=== PATIENT | female | born 1960 | race American Indian/Alaskan Native ===

== ENCOUNTER 2018-10-19 11:36 | Emergency (ER) | payer MEDICAID ==
[2018-10-19] MEDS ORDERED: PEPCID PO ONE (11:49)
[2018-10-19] MEDS ORDERED: ULTRAM PO ONE (11:49)
[2018-10-19] MEDS ORDERED: BABY ASPIRIN PO ONE (11:49)
[2018-10-19] MEDS ORDERED: ZOFRAN ODT PO ONE (11:49)
--- NOTE | 2018-10-19 11:59 | Emergency Department Report ---
ED Chest Pain HPI - General Stated Complaint: CHEST PAIN Time Seen by Provider: 10/19/18 11:39 Source: patient, EMS, old records reviewed - History of Present Illness Initial Comments: Ms. Pereira is a very pleasant 58 year old female with history of hypertension, [id number] diabetes and polysubstance abuse who presents to the ER for 1-2 days of throbbing headache and chest pain. She also had associated lightheadedness and dizziness. She is unable to describe or localize the pain in her chest. She denies any heaviness tightness or sharp quality. Headache is global nondescript. Moderate in severity. She lives with her mother. Mother provided additional history to EMS. Mother informed paramedics that she normally use EMS for [place]. She then uses her money for to obtain crack cocaine. Patient stated that her last use of crack cocaine was over a year ago. Mother told paramedics that she continues to use crack cocaine. Patient explained that she normally attempts to goes to [facility] but "they only gave two ostomy bags". She has a makeshift ostomy bag in place with tape and trash bag. The ostomy bags are unaffordable according to Ms. Pereira. She had abdominal surgery requiring ostomy due to complications of crack cocaine abuse. She also has history of pneumothorax which required surgical intervention. MD Complaint: chest pain -: Gradual, days(s) (2) Onset: during rest Pain Location: other (difficult to localize) Pain Radiation: none Severity: moderate Quality: dull Consistency: constant Improves With: nothing Worsens With: nothing re: denies: dyspnea Other Symptoms: denies: cough, fever, syncope, rash, leg swelling, palpitations - Related Data Home Medications Medication Instructions Recorded Confirmed Last Taken Hydrocodone Bit/Acetaminophen 07/20/13 07/20/13 Unknown [Lortab 5-500 Tablet] Ibuprofen [Motrin] 800 mg PO TID PRN 07/20/13 07/20/13 Unknown Previous Rx's Medication Instructions Recorded Last Taken Type Ciprofloxacin HCl [Ciprofloxacin 500 mg PO BID #10 tablet 07/20/13 Unknown Rx TAB] Cyclobenzaprine [Flexeril 10 MG 10 mg PO TID PRN #12 tablet 07/20/13 Unknown Rx TAB] HYDROcodone/APAP 7.5-325 [[place] 1 each PO Q6HR PRN #12 tablet 07/20/13 Unknown Rx 7.5/325 mg] Naproxen [Naprosyn TAB] 500 mg PO BID PRN #30 tablet 10/12/13 Unknown Rx Allergies Allergy/AdvReac Type Severity Reaction Status Date / Time Penicillins Allergy Swelling Verified 07/20/13 14:24 Heart Score - HEART Score History: Slightly suspicious EKG: Normal Age: 45-65 Risk factors: > 3 risk factors or hx of atherosclerotic disease Troponin: < normal limit HEART Score: 3 ED Review of Systems ROS: Stated complaint: CHEST PAIN Other details as noted in HPI Comment: All other systems reviewed and negative Constitutional: denies: fever, malaise Respiratory: denies: cough Cardiovascular: chest pain Gastrointestinal: denies: abdominal pain ED Past Medical Hx - Past Medical History Previous Medical History?: Yes Hx Hypertension: Yes Hx Diabetes: Yes Additional medical history: back injury several months ago. - Surgical History Additional Surgical History: lung collapsed abdominal surgery, ostomy - Social History Smoking Status: Current Every Day Smoker Substance Use Type: Cocaine, Marijuana - Medications Home Medications: Home Medications Medication Instructions Recorded Confirmed Last Taken Type Ciprofloxacin HCl [Ciprofloxacin 500 mg PO BID #10 tablet 07/20/13 Unknown Rx TAB] Cyclobenzaprine [Flexeril 10 MG 10 mg PO TID PRN #12 tablet 07/20/13 Unknown Rx TAB] HYDROcodone/APAP 7.5-325 [[place] 1 each PO Q6HR PRN #12 tablet 07/20/13 Unknown Rx 7.5/325 mg] Hydrocodone Bit/Acetaminophen 07/20/13 07/20/13 Unknown History [Lortab 5-500 Tablet] Ibuprofen [Motrin] 800 mg PO TID PRN 07/20/13 07/20/13 Unknown History Naproxen [Naprosyn TAB] 500 mg PO BID PRN #30 tablet 10/12/13 Unknown Rx ED Physical Exam - General General appearance: alert, in no apparent distress, other (looks older is then stated age, otherwise no acute distress, nontoxic, pleasant insightful talkative) - Head Head exam: Present: atraumatic, normocephalic - Eye Eye exam: Present: normal appearance - ENT ENT exam: Present: mucous membranes moist - Neck Neck exam: Present: normal inspection. Absent: tenderness, meningismus - Respiratory Respiratory exam: Present: normal lung sounds bilaterally. Absent: respiratory distress, wheezes, rales, rhonchi - Cardiovascular Cardiovascular Exam: Present: regular rate, normal rhythm, normal heart sounds. Absent: systolic murmur, diastolic murmur, rubs, gallop - GI/Abdominal GI/Abdominal exam: Present: soft, normal bowel sounds, other (old well-healed central large long vertical surgical scar, right lower quadrant ostomy with normal appearing output and makeshift ostomy bag). Absent: distended, tenderness, guarding, rebound - Extremities Exam Extremities exam: Present: normal inspection - Neurological Exam Neurological exam: Present: alert, oriented X3 - Psychiatric Psychiatric exam: Present: normal affect, normal mood - Skin Skin exam: Present: warm, dry, intact, normal color. Absent: rash ED Course Vital Signs 10/19/18 10/19/18 10/19/18 11:49 12:00 12:03 Temperature 97.3 F L Pulse Rate 110 H 101 H Respiratory 14 18 19 Rate Blood Pressure 115/55 O2 Sat by Pulse 100 100 Oximetry 10/19/18 10/19/18 10/19/18 12:30 12:45 13:01 Temperature Pulse Rate 94 H 91 H 87 Respiratory 17 13 17 Rate Blood Pressure 96/58 98/69 98/69 O2 Sat by Pulse 85 Oximetry 10/19/18 10/19/18 10/19/18 13:15 13:31 13:45 Temperature Pulse Rate 85 80 96 H Respiratory 12 15 21 Rate Blood Pressure 98/69 98/69 98/69 O2 Sat by Pulse Oximetry 10/19/18 10/19/18 10/19/18 13:49 14:01 14:15 Temperature Pulse Rate 93 H 93 H Respiratory 15 13 Rate Blood Pressure 98/69 98/69 O2 Sat by Pulse 99 Oximetry 10/19/18 10/19/18 10/19/18 14:31 14:45 15:01 Temperature Pulse Rate 92 H 112 H 79 Respiratory 13 16 9 L Rate Blood Pressure 98/69 98/69 98/69 O2 Sat by Pulse Oximetry 10/19/18 15:15 Temperature Pulse Rate 74 Respiratory 11 L Rate Blood Pressure 98/69 O2 Sat by Pulse Oximetry ED Medical Decision Making - Lab Data Result diagrams: 10/19/18 12:00 10/19/18 12:00 Laboratory Results - last 24 hr 10/19/18 10/19/18 12:00 12:00 WBC 8.9 RBC 3.57 L Hgb 11.0 Hct 33.6 MCV 94 MCH 31 MCHC 33 RDW 16.2 H Plt Count 371 Lymph % (Auto) 22.1 Bradley % (Auto) 11.1 H Eos % (Auto) 2.5 Baso % (Auto) 0.4 Lymph # 2.0 Bradley # 1.0 H Eos # 0.2 Baso # 0.0 Seg Neutrophils % 63.9 Seg Neutrophils # 5.7 Sodium 132 L Potassium 4.1 Chloride 103.8 Carbon Dioxide 13 L Anion Gap 19 BUN 53 H Creatinine 2.2 H Estimated GFR 28 BUN/Creatinine Ratio 24 Glucose 72 Calcium 9.2 Troponin T < 0.010 Laboratory Results - last 24 hr 10/19/18 10/19/18 10/19/18 12:00 12:00 14:49 WBC 8.9 RBC 3.57 L Hgb 11.0 Hct 33.6 MCV 94 MCH 31 MCHC 33 RDW 16.2 H Plt Count 371 Lymph % (Auto) 22.1 Bradley % (Auto) 11.1 H Eos % (Auto) 2.5 Baso % (Auto) 0.4 Lymph # 2.0 Bradley # 1.0 H Eos # 0.2 Baso # 0.0 Seg Neutrophils % 63.9 Seg Neutrophils # 5.7 Sodium 132 L Potassium 4.1 Chloride 103.8 Carbon Dioxide 13 L Anion Gap 19 BUN 53 H Creatinine 2.2 H Estimated GFR 28 BUN/Creatinine Ratio 24 Glucose 72 Calcium 9.2 Troponin T < 0.010 < 0.010 - EKG Data -: EKG Interpreted by Me - EKG Data 10/19/18 11:58 EKG obtained 1145 Rate 90 beats a minute normal sinus rhythm normal axis normal intervals no ST-T signs of ischemia No ST elevation poor R-wave progression in the anterior lead - Medical Decision Making Ms. Pereira presents with nondescript headache and chest pain. Headache appears to be tension headache. She does not appear in distress. Chest pain atypical for acute coronary syndrome. I do not suspect pulmonary embolism, aortic dissection, pneumothorax or pericarditis. Troponin levels x 2 sets are negative. Heart score 3. She is at low risk for major adverse cardiac event if she is drug free. Nurse did arrange for patient to have new ostomy bag which appeared to be her largest concern.. I review labs. Patient has elevated BUN/creatinine, prerenal injury pattern. Unclear chronicity possible acute versus chronic. She received IV fluid therapy prior to discharge. She did request PCP here in [facility]. She is discharge home in stable condition. Critical care attestation.: If time is entered above; I have spent that time in minutes in the direct care of this critically ill patient, excluding procedure time. ED Disposition Clinical Impression: Chest pain, Headache, CKD (chronic kidney disease) Disposition: - TO HOME OR SELFCARE Is pt being admited?: No Does the pt Need Aspirin: No Condition: Stable Instructions: Chest Pain (ED), Tension Headache (ED) Referrals: PRIMARY CARE, [Primary Care Provider] - 3-5 Days
[2018-10-19 12:24] LABS: Basophils % (Auto) 0.4 % (0.0-1.8); Eosinophils # (Auto) 0.2 K/mm3 (0.0-0.4); Eosinophils % (Auto) 2.5 % (0.0-4.3); Hematocrit 33.6 % (30.3-42.9); Lymphocytes % (Auto) 22.1 % (13.4-35.0); Mean Corpuscular HGB Conc 33 % (30-34); Mean Corpuscular Volume 94 fl (79-97); Monocytes % (Auto) 11.1 % (0.0-7.3); Platelet Count 371 K/mm3 (140-440); Red Blood Count 3.57 M/mm3 (3.65-5.03); Red Cell Distribution Width 16.2 % (13.2-15.2)
[2018-10-19 12:35] LABS: BUN/Creatinine Ratio 24; Blood Urea Nitrogen 53 mg/dL (7-17); Calcium 9.2 mg/dL (8.4-10.2); Hemolysis Index 17
[2018-10-19] MEDS ORDERED: NACL 0.9% 1000 ML 1,000 ML IV ONE (12:46)
--- NOTE | 2018-10-19 12:46 | XRay Report ---
CHEST ONE VIEW INDICATION: Chest pain. COMPARISON: None similar. FINDINGS: Portable, single, frontal chest radiograph demonstrates normal heart size. Somewhat prominent pete. Clear lungs. Unremarkable bones. Extrinsic EKG leads. Air noted in the stomach. CONCLUSION: No acute disease in the chest with pulmonary arterial hypertension not excluded. Please correlate. Thank you for the opportunity to participate in this patient's care.
[2018-10-19 16:56] VITALS: BP 118/78
== END 2018-10-19 16:54 | disposition home or self-care (01) ==
LOC: ED 11:36
DX: E11.22 Type 2 diabetes mellitus with diabetic chronic kidney disease (principal); I12.9 Hypertensive chronic kidney disease with stage 1 through stage 4 chronic kidney disease, or unspecified chronic kidney disease; N18.9 Chronic kidney disease, unspecified; F17.200 Nicotine dependence, unspecified, uncomplicated; F12.10 Cannabis abuse, uncomplicated; F14.10 Cocaine abuse, uncomplicated; Z88.0 Allergy status to penicillin
CPT/HCPCS: 36415; 71045; 80048; 84484; 85025; 93005; 93010; 96360; 99285; J7030; Q0162

== ENCOUNTER 2018-10-30 12:44 | Emergency (ER) | payer MEDICAID ==
[2018-10-30 12:53] VITALS: BP 110/65
--- NOTE | 2018-10-30 14:02 | Emergency Department Report ---
ED General Adult HPI - General Chief complaint: Medical Clearance Stated complaint: COLONSCOPY BAG LOOSE Time Seen by Provider: 10/30/18 13:56 Source: patient Mode of arrival: Ambulatory Limitations: No Limitations - History of Present Illness Initial comments: Mrs. Pereira is a 58 yo female with colostomy in place s/p emergency surgery related to complication of cocaine abuse at [facility] over one year ago. I have had the pleasure of treating Mrs. Pereira earlier this month. She requests a colostomy bag. She also had irritation and skin break down surrounding the ostomy site. No other concerns or symptoms. When I treated Mrs. Pereira previously, she used a homemade ostomy bag with tape, adhesive attached to a plastic bag. Past medical history also includes diabetes mellitus, hypertension - Related Data Home Medications Medication Instructions Recorded Confirmed Last Taken Hydrocodone Bit/Acetaminophen 07/20/13 07/20/13 Unknown [Lortab 5-500 Tablet] Ibuprofen [Motrin] 800 mg PO TID PRN 07/20/13 07/20/13 Unknown Previous Rx's Medication Instructions Recorded Last Taken Type Ciprofloxacin HCl [Ciprofloxacin 500 mg PO BID #10 tablet 07/20/13 Unknown Rx TAB] Cyclobenzaprine [Flexeril 10 MG 10 mg PO TID PRN #12 tablet 07/20/13 Unknown Rx TAB] HYDROcodone/APAP 7.5-325 [[place] 1 each PO Q6HR PRN #12 tablet 07/20/13 Unknown Rx 7.5/325 mg] Naproxen [Naprosyn TAB] 500 mg PO BID PRN #30 tablet 10/12/13 Unknown Rx Allergies Allergy/AdvReac Type Severity Reaction Status Date / Time Penicillins Allergy Swelling Verified 07/20/13 14:24 ED Review of Systems ROS: Stated complaint: COLONSCOPY BAG LOOSE Other details as noted in HPI Constitutional: denies: fever, malaise Gastrointestinal: denies: abdominal pain Skin: rash ED Past Medical Hx - Past Medical History Hx Hypertension: Yes Hx Diabetes: Yes Additional medical history: back injury several months ago. - Surgical History Past Surgical History?: Yes Additional Surgical History: lung collapsed abdominal surgery, ostomy - Social History Smoking Status: Never Smoker Substance Use Type: None - Medications Home Medications: Home Medications Medication Instructions Recorded Confirmed Last Taken Type Ciprofloxacin HCl [Ciprofloxacin 500 mg PO BID #10 tablet 07/20/13 Unknown Rx TAB] Cyclobenzaprine [Flexeril 10 MG 10 mg PO TID PRN #12 tablet 07/20/13 Unknown Rx TAB] HYDROcodone/APAP 7.5-325 [[place] 1 each PO Q6HR PRN #12 tablet 07/20/13 Unknown Rx 7.5/325 mg] Hydrocodone Bit/Acetaminophen 07/20/13 07/20/13 Unknown History [Lortab 5-500 Tablet] Ibuprofen [Motrin] 800 mg PO TID PRN 07/20/13 07/20/13 Unknown History Naproxen [Naprosyn TAB] 500 mg PO BID PRN #30 tablet 10/12/13 Unknown Rx ED Physical Exam - General Limitations: No Limitations General appearance: alert, in no apparent distress - Respiratory Respiratory exam: Absent: respiratory distress - GI/Abdominal GI/Abdominal exam: Present: soft, other (ostomy with normal output, no ostomy bag in place, skin irritation surrounding the ostomy site without infection.). Absent: distended, tenderness - Neurological Exam Neurological exam: Present: alert, oriented X3 - Psychiatric Psychiatric exam: Present: normal affect, normal mood - Skin Skin exam: Present: warm, dry, intact, normal color ED Course Vital Signs 10/30/18 12:50 Temperature 98.5 F Pulse Rate 107 H Respiratory 18 Rate Blood Pressure 110/65 O2 Sat by Pulse 94 Oximetry ED Medical Decision Making - Medical Decision Making I have asked our nurse to attempt to obtain ostomy bag. She will need protective services social worker consultation on subsequent encounter. Discharged home. Critical care attestation.: If time is entered above; I have spent that time in minutes in the direct care of this critically ill patient, excluding procedure time. ED Disposition Clinical Impression: History of colostomy, Poor social situation Disposition: DC-01 TO HOME OR SELFCARE Is pt being admited?: No Does the pt Need Aspirin: No Condition: Stable Referrals: BRIAN CLAY [Primary Care Provider] - 3-5 Days
== END 2018-10-30 14:28 | disposition home or self-care (01) ==
LOC: ED 12:44
DX: K94.09 Other complications of colostomy (principal); I10 Essential (primary) hypertension; E11.9 Type 2 diabetes mellitus without complications; Z88.0 Allergy status to penicillin
CPT/HCPCS: 99282

== ENCOUNTER 2019-01-02 10:45 | Emergency (ER) | payer MEDICAID ==
[2019-01-02] MEDS ORDERED: ZOFRAN IV ONE (11:48)
[2019-01-02] MEDS ORDERED: MORPHINE IV ONE (11:48)
--- NOTE | 2019-01-02 11:49 | Emergency Department Report ---
ED General Adult HPI - General Chief complaint: Abdominal Pain Stated complaint: ABDOMINAL PAIN Time Seen by Provider: 01/02/19 11:09 Source: patient, EMS (ems notes not available at time of chart dictation), RN notes reviewed, old records reviewed Mode of arrival: Stretcher Limitations: No Limitations - History of Present Illness Initial comments: This is a 58-year-old female. The patient is not known to this provider previously The patient has a past medical history of reported renal insufficiency, right lower quadrant colostomy, asthma, diabetes, hypertension. Patient also has a history of former polysubstance, drug use, she reports that this is now resolved. The patient presents to the emergency room with the complaint of right-sided chest pain, right upper quadrant abdominal pain, present for the past couple days. The pain is aching, intermittent, increases with palpation, decreases with rest, and does not radiate to the back, arms or neck. Positive nausea, now resolved, no vomiting today, no diaphoresis, no exertional shortness of breath. The patient reports no pulmonary embolus or DVT risk factors. The patient denies recent aspirin consumption. She denies lower abdominal pain. She denies headache, neck pain, left-sided or central chest pain and/or back pain. She indicates no change with consumption of heavy, spicy foods. She's not had pain like this in the past, that she can recall. -: Gradual, days(s) Location: chest, abdomen Radiation: non-radiation Severity scale (0 -10): 10 Quality: aching Consistency: intermittent Improves with: rest Worsens with: movement - Related Data Home Medications Medication Instructions Recorded Confirmed Last Taken Hydrocodone Bit/Acetaminophen 07/20/13 07/20/13 Unknown [Lortab 5-500 Tablet] Ibuprofen [Motrin] 800 mg PO TID PRN 07/20/13 07/20/13 Unknown Previous Rx's Medication Instructions Recorded Last Taken Type Ciprofloxacin HCl [Ciprofloxacin 500 mg PO BID #10 tablet 07/20/13 Unknown Rx TAB] Cyclobenzaprine [Flexeril 10 MG 10 mg PO TID PRN #12 tablet 07/20/13 Unknown Rx TAB] HYDROcodone/APAP 7.5-325 [[place] 1 each PO Q6HR PRN #12 tablet 07/20/13 Unknown Rx 7.5/325 mg] Naproxen [Naprosyn TAB] 500 mg PO BID PRN #30 tablet 10/12/13 Unknown Rx Acetaminophen [Tylenol Arthritis] 325 mg PO Q6HR PRN #30 tablet.er 01/02/19 Unknown Rx Aspirin [Aspirin BABY CHEW TAB] 81 mg PO QDAY #30 tab.chew 01/02/19 Unknown Rx Famotidine [Pepcid] 20 mg PO BID #60 tablet 01/02/19 Unknown Rx Ondansetron [Zofran Odt] 4 mg PO Q8HR PRN #20 tab.rapdis 01/02/19 Unknown Rx Allergies Allergy/AdvReac Type Severity Reaction Status Date / Time Penicillins Allergy Swelling Verified 07/20/13 14:24 ED Review of Systems ROS: Stated complaint: ABDOMINAL PAIN Other details as noted in HPI Constitutional: denies: fever ENT: denies: epistaxis Respiratory: denies: cough, shortness of breath Cardiovascular: chest pain Gastrointestinal: abdominal pain. denies: vomiting Genitourinary: denies: dysuria Musculoskeletal: denies: back pain Skin: denies: lesions Neurological: denies: headache, weakness Psychiatric: denies: anxiety ED Past Medical Hx - Past Medical History Previous Medical History?: Yes Hx Hypertension: Yes Hx Diabetes: Yes Hx Asthma: Yes Additional medical history: back injury, h/o drug abuse - Surgical History Past Surgical History?: Yes Additional Surgical History: lung collapsed abdominal surgery, ostomy - Social History Smoking Status: Current Every Day Smoker Substance Use Type: Marijuana - Medications Home Medications: Home Medications Medication Instructions Recorded Confirmed Last Taken Type Ciprofloxacin HCl [Ciprofloxacin 500 mg PO BID #10 tablet 07/20/13 Unknown Rx TAB] Cyclobenzaprine [Flexeril 10 MG 10 mg PO TID PRN #12 tablet 07/20/13 Unknown Rx TAB] HYDROcodone/APAP 7.5-325 [[place] 1 each PO Q6HR PRN #12 tablet 07/20/13 Unknown Rx 7.5/325 mg] Hydrocodone Bit/Acetaminophen 07/20/13 07/20/13 Unknown History [Lortab 5-500 Tablet] Ibuprofen [Motrin] 800 mg PO TID PRN 07/20/13 07/20/13 Unknown History Naproxen [Naprosyn TAB] 500 mg PO BID PRN #30 tablet 10/12/13 Unknown Rx Acetaminophen [Tylenol Arthritis] 325 mg PO Q6HR PRN #30 tablet.er 01/02/19 Unknown Rx Aspirin [Aspirin BABY CHEW TAB] 81 mg PO QDAY #30 tab.chew 01/02/19 Unknown Rx Famotidine [Pepcid] 20 mg PO BID #60 tablet 01/02/19 Unknown Rx Ondansetron [Zofran Odt] 4 mg PO Q8HR PRN #20 tab.rapdis 01/02/19 Unknown Rx ED Physical Exam - General Limitations: No Limitations General appearance: alert, in no apparent distress - Head Head exam: Present: atraumatic, normocephalic - Eye Eye exam: Present: normal appearance, EOMI. Absent: nystagmus - ENT ENT exam: Present: normal exam, normal orophraynx, mucous membranes moist, normal external ear exam - Neck Neck exam: Present: normal inspection, full ROM. Absent: tenderness, meningismus - Respiratory Respiratory exam: Present: normal lung sounds bilaterally. Absent: respiratory distress - Cardiovascular Cardiovascular Exam: Present: regular rate, normal rhythm, normal heart sounds. Absent: bradycardia, tachycardia, irregular rhythm, systolic murmur, diastolic murmur, rubs, gallop - GI/Abdominal GI/Abdominal exam: Present: soft, tenderness, other (there is right upper quadrant tenderness. There is no rebound, guarding or peritoneal signs.). Absent: distended, guarding, rebound, rigid, pulsatile mass - Extremities Exam Extremities exam: Present: normal inspection, full ROM, other (2+ pulses noted in the bilateral upper, lower extremities. Compartments soft. No long bony tenderness. The pelvis is stable.). Absent: joint swelling, calf tenderness - Back Exam Back exam: Present: normal inspection, full ROM. Absent: tenderness, CVA ten derness (R), paraspinal tenderness, vertebral tenderness - Neurological Exam Neurological exam: Present: alert, other (Extraocular movements intact. Tongue midline. No facial droop. Facial sensation intact to light touch in the V1, V2, V3 distribution bilaterally. 5 and 5 strength in 4 extremities.. Sensation is intact to light touch in 4 extremities.). Absent: motor sensory deficit - Psychiatric Psychiatric exam: Present: normal affect, normal mood - Skin Skin exam: Present: warm, dry, intact, normal color. Absent: rash ED Course Vital Signs 01/02/19 10:52 Temperature 98.1 F Pulse Rate 63 Respiratory 12 Rate Blood Pressure 128/72 [Right] O2 Sat by Pulse 99 Oximetry - Reevaluation(s) Reevaluation #1: 01/02/19 12:42 Differential diagnosis, including not limited to: GERD, gastritis, hiatal hernia, acute coronary syndrome, pneumonia, pulmonary embolus, pancreatitis, hepatitis, biliary colic, cholecystitis Assessment and plan: 58-year-old female with a complaint of right upper quadrant pain and chest pain. Patient is tender in the right upper quadrant. Does not have a positive [place] sign. Previous laboratory studies have indicated renal insufficiency. EKG abnormal, but unchanged from prior. Appears comfortable at this time. Screening laboratory studies, repeat EKG, repeat troponin, CT scan of the abdomen and pelvis, right upper quadrant ul trasound pending. We will reassess after her data points have resulted. Endorse is no urinary symptoms. Reevaluation #2: 01/02/19 13:51 Ultrasound basically negative for acute disease. Chronic appearing atrophic right-sided kidney is noted. Reevaluation #4: 01/02/19 16:39 Troponin negative 3. EKG unchanged 2. Patient resting comfortably, and in no acute distress. She reports resolution of her pain. Patient is observed in the emergency room for greater than 5 hours without clinical decompensation. Her abdomen is soft on repeat examination. Urinalysis reviewed and appreciated, contaminated by epithelial cells, however does not complain of any urinary symptoms, therefore, I doubt atypical presentation of urinary tract infection, or kidney infection. Patient will be discharged with nonnarcotics, [id number], nonsedating medications, instructed to follow up with outpatient cardiology for abnormal EKG, primary care, which a percussion's were reviewed. The patient endorses understanding. Return precautions were reviewed. ED Medical Decision Making - Lab Data Result diagrams: 01/02/19 11:30 01/02/19 13:19 Vital Signs 01/02/19 10:52 Temperature 98.1 F Pulse Rate 63 Respiratory 12 Rate Blood Pressure 128/72 [Right] O2 Sat by Pulse 99 Oximetry Lab Results 01/02/19 01/02/19 Range/Units 11:30 11:30 WBC 8.9 (4.5-11.0) K/mm3 RBC 4.22 (3.65-5.03) M/mm3 Hgb 12.6 (10.1-14.3) gm/dl Hct 38.6 (30.3-42.9) % MCV 91 (79-97) fl MCH 30 (28-32) pg MCHC 33 (30-34) % RDW 15.2 (13.2-15.2) % Plt Count 370 (140-440) K/mm3 Lymph % (Auto) 27.7 (13.4-35.0) % [place] % (Auto) 6.8 (0.0-7.3) % Eos % (Auto) 4.7 H (0.0-4.3) % Baso % (Auto) 1.0 (0.0-1.8) % Lymph # 2.5 (1.2-5.4) K/mm3 [place] # 0.6 (0.0-0.8) K/mm3 Eos # 0.4 (0.0-0.4) K/mm3 Baso # 0.1 (0.0-0.1) K/mm3 Seg Neutrophils % 59.8 (40.0-70.0) % Seg Neutrophils # 5.3 (1.8-7.7) K/mm3 Chloride 60.0 L (98-107) mmol/L Creatinine < 0.2 L (0.7-1.2) mg/dL Estimated GFR > 60 ml/min Total Bilirubin < 0.20 (0.1-1.2) mg/dL Troponin T < 0.010 (0.00-0.029) ng/mL Lipase 3 L (13-60) units/L - EKG Data -: EKG Interpreted by Me EKG shows normal: sinus rhythm Rate: normal - EKG Data When compared to previous EKG there are: no significant change 01/02/19 12:40 This is a normal sinus rhythm, 68 bpm, normal axis, QTC prolonged, T-wave inversion V2, poor R-wave progression, Q waves noted in the inferior leads, abnormal EKG, not consistent with ST elevation myocardial infarction, appears unchanged from prior EKG from 10/19/2018. This is an abnormal EKG. - Radiology Data Radiology results: pending, report reviewed, image reviewed interpreted by me: X-ray the chest appears to be negative for acute disease Noncontrast CT scan of the abdomen and pelvis negative for acute disease. X-ray the chest negative for acute disease. Critical care attestation.: If time is entered above; I have spent that time in minutes in the direct care of this critically ill patient, excluding procedure time. ED Disposition Clinical Impression: Right upper quadrant pain, Chronic renal insufficiency, Abnormal EKG Disposition: TO HOME OR SELFCARE Is pt being admited?: No Does the pt Need Aspirin: No Condition: Stable Instructions: Abdominal Pain (ED) Additional Instructions: Take the medications as needed/directed. Follow up with a apartment leasing manager for abnormal EKG and a right upper quadrant abdominal pain within the next 3-5 days. Local lead sustainability specialist include Dr. Trevino or Nadine Laboratory studies demonstrated mild renal insufficiency. Avoid consumption of Motrin, ibuprofen, Naprosyn, Aleve follow-up with a primary care doctor or director of emergency nursing for renal insufficiency within the next 2-3 weeks. Local nephrology specialists including Dr. Pope Return to the emergency room right away with new pain, worsened pain, migration of pain, productive vomiting, change in mental status, confusion, inability to tolerate liquid feeds, new, worse or different symptoms Referrals: RAMIRO BOYLE MD [Staff Physician] - 3-5 Days KAYLYN TREVINO MD [Staff Physician] - 3-5 Days JOYCE POPE MD [Staff Physician] - 3-5 Days [facility] [Provider Group] - 3-5 Days
[2019-01-02 12:13] LABS: Basophils # (Auto) 0.1 K/mm3 (0.0-0.1); Eosinophils # (Auto) 0.4 K/mm3 (0.0-0.4); Eosinophils % (Auto) 4.7 % (0.0-4.3); Hematocrit 38.6 % (30.3-42.9); Hemoglobin 12.6 gm/dl (10.1-14.3); Lymphocytes # (Auto) 2.5 K/mm3 (1.2-5.4); Lymphocytes % (Auto) 27.7 % (13.4-35.0); Mean Corpuscular HGB Conc 33 % (30-34); Mean Corpuscular Volume 91 fl (79-97); Monocytes # (Auto) 0.6 K/mm3 (0.0-0.8); Monocytes % (Auto) 6.8 % (0.0-7.3); Platelet Count 370 K/mm3 (140-440); Red Blood Count 4.22 M/mm3 (3.65-5.03); Red Cell Distribution Width 15.2 % (13.2-15.2)
[2019-01-02 12:31] LABS: Hemolysis Index 0
[2019-01-02] MEDS ORDERED: NACL 0.9% 250ML 250 ML IV ONE (12:42)
[2019-01-02] MEDS ORDERED: PEPCID IV ONE (12:42)
--- NOTE | 2019-01-02 12:53 | Cat Scan Report ---
PROCEDURE: CT ABDOMEN PELVIS WO CON TECHNIQUE: Axial images obtained abdomen and pelvis without intravenous contrast. Sagittal and coron al reformatted images obtained. HISTORY: ruq pain hx fo colostomy COMPARISONS: None FINDINGS: Lung bases demonstrate no consolidation. No effusion. Calcified granuloma left base. Trace pericardia l fluid noted. Liver, spleen and pancreas unremarkable noncontrast appearance Gallbladder no radiopaque calculus. No biliary dilatation The adrenal glands are thickened. No discrete nodule Kidneys demonstrate no calculus. No hydronephrosis. Right kidney is mildly atrophic compared to the l eft. Ureters are nondilated. Bladder contracted. Midline uterus. No adnexal mass Atherosclerotic calcification of the aorta. No aneurysm. No retroperitoneal adenopathy No bowel obstruction. Right lower quadrant ostomy noted. No significant parastomal herniation. No par astomal inflammatory change. Scattered fluid within the small bowel. No significant diverticulosis. N o diverticulitis. No free air. No free fluid. Status post resection of the cecum. No acute bony abnormality IMPRESSION: Right lower quadrant colostomy. Colostomy appears unremarkable No bowel obstruction No free air. No free fluid. No acute inflammatory change No hydronephrosis Additional chronic findings as above.. This document is electronically signed by Jeet Aguilar MD., January 02 2019 12:50:43 PM ET
--- NOTE | 2019-01-02 12:54 | XRay Report ---
AP CHEST : 01/02/19 10:45:00 CLINICAL: Chest pain. COMPARISON:10/19/18 FINDINGS: Normal heart and pulmonary vessels. The lungs are mildly hyperexpanded and hyperlucent. No airspace disease or pleural effusion. The bones and soft tissues are normal. IMPRESSION: Mild pulmonary hyperinflation but otherwise negative.
[2019-01-02 13:05] LABS: Alanine Aminotransferase 8 units/L (7-56); Albumin 4.5 g/dL (3.9-5); BUN/Creatinine Ratio 8; Blood Urea Nitrogen 9 mg/dL (7-17); Calcium 10.2 mg/dL (8.4-10.2)
--- NOTE | 2019-01-02 13:21 | Ultrasound Report ---
ULTRASOUND ABDOMEN LIMITED: TECHNIQUE: Transabdominal ultrasound with color Doppler interrogation. HISTORY: Right upper quadrant pain. COMPARISON: none. FINDINGS: LIVER: Normal. BILIARY SYSTEM: Normal. PANCREAS: Normal. RIGHT KIDNEY: The right kidney is slightly atrophic measuring 8 cm in length. No focal renal lesion or hydronephrosis. PROXIMAL AORTA: Normal. ASCITES: None. IMPRESSION: Slightly atrophic right kidney, otherwise, unremarkable right upper quadrant ultrasound.
[2019-01-02 14:05] LABS: BUN/Creatinine Ratio 6; Blood Urea Nitrogen 9 mg/dL (7-17); Calcium 9.7 mg/dL (8.4-10.2); Hemolysis Index 4
[2019-01-02 14:49] LABS: Bacteria,Urine 1+ /HPF (Negative); Mucus,Urine 1+ /HPF
[2019-01-02 14:54] LABS: Bilirubin,Urine NEG (Negative); Blood,Urine NEG (Negative); Color,Urine Amber (Yellow); Protein,Urine <15 mg/dL mg/dL (Negative); Urobilinogen,Urine < 2.0 mg/dL (<2.0)
[2019-01-02 17:59] VITALS: BP 136/68
== END 2019-01-02 17:25 | disposition home or self-care (01) ==
LOC: ED 10:45
DX: I12.9 Hypertensive chronic kidney disease with stage 1 through stage 4 chronic kidney disease, or unspecified chronic kidney disease (principal); E11.22 Type 2 diabetes mellitus with diabetic chronic kidney disease; N18.9 Chronic kidney disease, unspecified; J45.909 Unspecified asthma, uncomplicated; F17.200 Nicotine dependence, unspecified, uncomplicated; F12.10 Cannabis abuse, uncomplicated; Z88.0 Allergy status to penicillin; Z93.3 Colostomy status; Z79.82 Long term (current) use of aspirin
CPT/HCPCS: 36415; 71045; 74176; 76705; 80048; 80053; 81001; 82140; 83690; 84484; 85025; 85379; 85610; 93005; 93010; 96374; 96375; 99285; J2270; J2405; J7050

== ENCOUNTER 2019-01-09 20:37 | Emergency (ER) | payer MEDICAID | END 2019-01-09 22:07 | disposition left against medical advice (07) | LOC: ED 20:37 | DX: K94.09 Other complications of colostomy (principal); Z53.21 Procedure and treatment not carried out due to patient leaving prior to being seen by health care provider ==